=== PATIENT | male | born 1985 | race Caucasian/White ===

== ENCOUNTER 2017-02-25 08:19 | Emergency (ER) | payer SELFPAY ==
[2017-02-25 08:24] VITALS: BP 139/78
[2017-02-25] MEDS ORDERED: Ketorolac 60 MG/2 ML SDV IM ONE (08:42)
--- NOTE | 2017-02-25 11:19 | EDM.PDOC ---
ED HPI LOWER BACK PAIN/INJURY - General Chief Complaint: Back Pain or Injury Stated Complaint: back pain Time Seen by Provider: 02/25/17 08:38 Source of Information: Reports: Patient History Limitations: Reports: No limitations - History of Present Illness INITIAL COMMENTS - FREE TEXT/NARRATIVE: Mitch is a 31 yo male who presents to the ER with complaints of back pain. Patient states that his back has hurt for the past four days and isn't getting any better. States he does have some low back pain on occasion but hasn't had muscle spasms like this. Has tried taking ibuprofen and taking hot baths with no relief. He states the pain is in his right lower back area with no radiation of pain. Denies any numbness, tingling or radicular symptoms. Denies any trauma or known injury. States he woke up with it one morning. He works at the [employer] and is on his feet all day long lifting heavy items on a daily basis. Is currently moving and isn't sure if this initiated it or not. Location: Reports: paraspinal. Denies: radiating pain Quality: Reports: Sharp Severity: moderate Improves with: Reports: Heat therapy, Immobilization Worsens with: Reports: Other (lifting), Movement Associated Symptoms: Reports: Denies symptoms - Related Data Allergies/ADRs: Allergies Allergy/AdvReac Type Severity Reaction Status Date / Time No Known Allergies Allergy Verified 02/25/17 08:24 Home Meds: Home Meds Cyclobenzaprine [Flexeril] 10 mg PO TID PRN #20 tablet 02/25/17 [Rx] Ketorolac [Toradol] 10 mg PO Q6H PRN #20 tablet 02/25/17 [Rx] Past Medical History - Past Health History Medical/Surgical History: Denies Medical/Surgical History Social & Family History - Family History Family Medical History: Noncontributory - Tobacco Use Smoking Status *Q: Current Every Day Smoker Years of Tobacco use: 13 Packs/Tins Daily: 0.5 Second Hand Smoke Exposure: Yes - Caffeine Use Caffeine Use: Reports: Coffee - Alcohol Use Days Per Week of Alcohol Use: 1 Number of Drinks Per Day: 1 Total Drinks Per Week: 1 - Recreational Drug Use Recreational Drug Use: Yes Drug Use in Last 12 Months: No ED ROS GENERAL - Review of Systems Review Of Systems: ROS reveals no pertinent complaints other than HPI. ED EXAM,LOWER BACK PAIN/INJURY - Physical Exam Exam: See Below Exam Limited By: No limitations General Appearance: alert, no apparent distress Back Exam: decreased range of motion, muscle spasm (right l2-l5), paraspinal tenderness. No: vertebral tenderness Extremities: normal inspection, normal range of motion, non-tender, normal capillary refill Neurological: alert, normal mood/affect, normal reflexes, no motor/sensory deficits Psychiatric: normal affect, normal mood Skin Exam: Warm, Dry, Intact, Normal color, No rash Course - Vital Signs Last Recorded V/S: Last Vital Signs Temp 98.0 F 02/25/17 08:20 Pulse 100 02/25/17 08:20 Resp 16 02/25/17 08:20 BP 139/78 02/25/17 08:20 Pulse Ox 100 02/25/17 08:20 - Orders/Labs/Meds Meds: Medications Discontinued Medications Generic Name Dose Route Start Last Admin Trade Name Freq PRN Reason Stop Dose Admin Ketorolac Tromethamine 60 mg 02/25/17 08:42 02/25/17 08:49 Toradol IM 02/25/17 08:43 60 mg ONETIME ONE Administration Orphenadrine Citrate 60 mg 02/25/17 08:42 02/25/17 08:52 Norflex IM 02/25/17 08:43 60 mg NOW STA Administration Departure - Departure Time of Disposition: 09:10 Disposition: Home, Self-Care 01 Condition: good Clinical Impression: Lumbar paraspinal muscle spasm Prescriptions: Cyclobenzaprine [Flexeril] 10 mg PO TID PRN #20 tablet PRN Reason: Spasms Ketorolac [Toradol] 10 mg PO Q6H PRN #20 tablet PRN Reason: Pain Instructions: Muscle Strain, [id number], Back Pain, Adult, [id number] Referrals: PCP,None [Primary Care Provider] - Forms: ED Department Discharge Additional Instructions: 1) Toradol 10mg - 1 tablet every 6 hours as needed for discomfort. 2) Flexeril 10mg - 1 tablet every 8 hours for spasms 3) Apply heat to affected area 4) Rest today 5) Referral to physical therapy given. 6) If symptoms persist or worsen, recommend reevaluation as discussed. - Problem List & Annotations (1) Lumbar paraspinal muscle spasm SNOMED Code(s): 24552104, 38863568 Code(s): M62.830 - MUSCLE SPASM OF BACK Status: Acute - Problem List Review Problem List Initiated/Reviewed/Updated: Yes - Assessment/Plan Plan: Treatment today included muscle relaxer and anti-inflammatory injections with prescriptions to be filled as well. Discussed further evaluation to include x- ray, etc... which we will wait on. Referral given for physical therapy and note for work today.
== END 2017-02-25 09:10 | disposition home or self-care (01) ==
LOC: CC.ED 08:19
DX: M62.830 Muscle spasm of back (principal); F17.210 Nicotine dependence, cigarettes, uncomplicated
CPT/HCPCS: 96372; 99282; J1885; J2360

== ENCOUNTER 2020-04-19 00:55 | Emergency (ER) | payer SELFPAY ==
[2020-04-19 00:57] VITALS: BP 128/83; PULSE 86
[2020-04-19] MEDS ORDERED: Lidocaine 1% 20 ML MDV INJECT ONE (01:17)
[2020-04-19] MEDS ORDERED: Diphtheria,Pertussis(Acell),Tetanus Vaccine 0.5 ML Syringe IM ONE (01:19)
[2020-04-19] MEDS ORDERED: Bacitracin/Neomycin/Polymyxin B Oint 0.9 GM U/D Packet TOP ONE (01:25)
--- NOTE | 2020-04-19 01:45 | EDM.PDOC ---
ED HPI GENERAL MEDICAL PROBLEM - General Chief Complaint: General Stated Complaint: L) pointer finger laceration Time Seen by Provider: 04/19/20 01:18 Source of Information: Reports: Patient History Limitations: Reports: No Limitations - History of Present Illness INITIAL COMMENTS - FREE TEXT/NARRATIVE: Mitch is a 34 yo male who presents to the ED with complaints of a cut to his left index finger. States he was using a knife around 2030 this evening to cut a whole in his belt and slipped cutting across his knuckle. Admits it wouldn't stop bleeding so he came in to the ED. Tdap status not up to date per patient. Left Finger-Index Pain Score (Numeric/FACES): 8 - Related Data Allergies Allergy/AdvReac Type Severity Reaction Status Date / Time No Known Allergies Allergy Verified 04/19/20 00:49 Past Medical History - Past Health History Medical/Surgical History: Denies Medical/Surgical History Social & Family History - Family History Family Medical History: Noncontributory - Tobacco Use Smoking Status *Q: Current Every Day Smoker Years of Tobacco use: 20 Packs/Tins Daily: 1 - Caffeine Use Caffeine Use: Reports: None - Recreational Drug Use Recreational Drug Use: No ED ROS GENERAL - Review of Systems Review Of Systems: Comprehensive ROS is negative, except as noted in HPI. ED EXAM, GENERAL - Physical Exam Exam: See Below Exam Limited By: No Limitations General Appearance: Alert, No Apparent Distress Skin Exam: Wound/Incision (1.5cm fairly linear superficial laceration to left index finger) ED GENERAL MEDICAL PROCEDURES - Laceration/Wound Repair Left Posterior Digit - 2nd (Index) Lac/wound length in cm: 1.5 Appearance: Superficial, Linear Distal NVT: Neuro & Vascular Intact, No Tendon Injury Anesthetic Type: Local Local Anesthesia - Lidocaine (Xylocaine): 1% Plain Local Anesthetic Volume: 2cc Skin Prep: Chlorhexidine (Hibiciens), Providone-Iodine (Betadine) Exploration/Debridement/Repair: Wound Explored, In a Bloodless Field, Explored to Base, No Foreign Material Found Closed with: Sutures Suture Size: 5-0 # of Sutures: 5 Suture Type: Prolene, Interrupted Sterile Dressing Applied: Nurse Tetanus Status Addressed: Yes Complications: No Course - Vital Signs Last Recorded V/S: Last Vital Signs Temp 97.3 F 04/19/20 00:55 Pulse 86 04/19/20 00:55 Resp 16 04/19/20 00:55 BP 128/83 04/19/20 00:55 Pulse Ox 98 04/19/20 00:55 - Orders/Labs/Meds Orders: Active Orders 24 hr Category Date Time Status Vaccines to be Administered [RC] PER UNIT ROUTINE Care 04/19/20 01:20 Active Meds: Medications Discontinued Medications Generic Name Dose Route Start Last Admin Trade Name Priscila PRN Reason Stop Dose Admin Diphtheria/Tetanus/Acell Pertussis 0.5 ml 04/19/20 01:19 04/19/20 01:23 Adacel IM 04/19/20 01:20 0.5 ml .ONCE ONE Administration Lidocaine HCl 20 ml 04/19/20 01:17 04/19/20 01:22 Xylocaine 1% INJECT 04/19/20 01:18 20 ml ONETIME ONE Administration Neomycin/Polymyxin/Bacitracin 1 each 04/19/20 01:25 04/19/20 01:27 Triple Antibiotic Oint TOP 04/19/20 01:26 1 each ONETIME ONE Administration Departure - Departure Time of Disposition: 01:43 Disposition: Home, Self-Care 01 Clinical Impression: Laceration of finger of left hand Qualifiers: Encounter type: initial encounter Finger: index finger Damage to nail status: without damage Foreign body presence: without foreign body Qualified Code(s): S61.211A - Laceration without foreign body of left index finger without damage to nail, initial encounter - Discharge Information Instructions: Laceration Care, Adult, Sutured Wound Care, [id number] Referrals: Félix Dent PA-C [Primary Care Provider] - Additional Instructions: 1) Keep wound clean and dry for 48 hours, no soaking in tub or sink 2) May leave open to air after 48 hours 3) Recommend taking Tylenol or ibuprofen for discomfort 4) Sutures out in 10-14 days. 5) Watch for signs of infection (increased redness, drainage, warmth, etc...). 6) If any concerns or questions call [phone] or return for reevaluation Sepsis Event Note - Evaluation Sepsis Screening Result: No Definite Risk - Focused Exam Vital Signs: Vital Signs Temp Pulse Resp BP Pulse Ox 04/19/20 00:55 97.3 F 86 16 128/83 98 Date Exam was Performed: 04/19/20 Time Exam was Performed: 01:39 - Problem List & Annotations (1) Laceration of finger of left hand SNOMED Code(s): 585545771 Code(s): S61.219A - LACERATION W/O FB OF UNSP FINGER W/O DAMAGE TO NAIL, INIT Status: Acute Current Visit: Yes Qualifiers: Encounter type: initial encounter Finger: index finger Damage to nail status: without damage Foreign body presence: without foreign body Qualified Code(s): S61.211A - Laceration without foreign body of left index finger without damage to nail, initial encounter - My Orders Last 24 Hours: My Active Orders 04/19/20 01:20 Vaccines to be Administered [RC] PER UNIT ROUTINE - Assessment/Plan Last 24 Hours: My Active Orders 04/19/20 01:20 Vaccines to be Administered [RC] PER UNIT ROUTINE Plan: See additional instructions and procedure note. No complications.
== END 2020-04-19 01:52 | disposition home or self-care (01) ==
LOC: CC.ED 00:55
DX: S61.211A Laceration without foreign body of left index finger without damage to nail, initial encounter (principal); F17.210 Nicotine dependence, cigarettes, uncomplicated; Z23 Encounter for immunization; W26.0XXA Contact with knife, initial encounter
CPT/HCPCS: 12001; 90471; 90715; 99282; J2001

== ENCOUNTER 2021-01-04 23:20 | Emergency (ER) | payer SELFPAY ==
--- NOTE | 2021-01-05 00:08 | EDM.PDOC ---
ED HPI GENERAL MEDICAL PROBLEM - General Chief Complaint: Upper Extremity Injury/Pain Stated Complaint: "Broke my hand" Time Seen by Provider: 01/05/21 00:02 Source of Information: Reports: Patient History Limitations: Reports: No Limitations - History of Present Illness INITIAL COMMENTS - FREE TEXT/NARRATIVE: This patient is a 35 year old male that presents to the ER. Patient reports getting mad at home at roommate and guys that came over and punching a wall. Patient reports he has punched a wall several times before after getting angry in the past. Patient denies every breaking his hand before. Onset: Today Onset Date: 01/05/21 Onset Time: 22:30 Location: Reports: Upper Extremity, Right Severity: Mild Improves with: Reports: Movement Worsens with: Reports: Immobilization Associated Symptoms: Reports: No Other Symptoms - Related Data Allergies Allergy/AdvReac Type Severity Reaction Status Date / Time No Known Allergies Allergy Verified 04/19/20 00:49 Home Meds: Home Meds . [No Known Home Meds] 04/19/20 [History] Past Medical History - Past Health History Medical/Surgical History: Denies Medical/Surgical History Social & Family History - Family History Family Medical History: No Pertinent Family History - Caffeine Use Caffeine Use: Reports: None Review of Systems - Review of Systems Review Of Systems: See Below Constitutional: Reports: No Symptoms Eyes: Reports: No Symptoms Ears: Reports: No Symptoms Nose: Reports: No Symptoms Mouth/Throat: Reports: No Symptoms Respiratory: Reports: No Symptoms Cardiovascular: Reports: No Symptoms Musculoskeletal: Reports: Hand Pain (right) Skin: Reports: No Symptoms ED EXAM, GENERAL - Physical Exam Exam: See Below Exam Limited By: No Limitations General Appearance: Alert, WD/WN, No Apparent Distress Respiratory/Chest: No Respiratory Distress, Lungs Clear, Normal Breath Sounds, No Accessory Muscle Use Cardiovascular: Normal Peripheral Pulses, Regular Rate, Rhythm, No Edema, No Gallop, No JVD, No Murmur, No Rub Peripheral Pulses: 2+: Radial (L), Radial (R) Extremities: Normal Capillary Refill, Limited Range of Motion (of t he 4th, 5th digits due to pain, swelling. ), Other (pain, swelling, tenderness right 4th, 5th digits, metacarpals at consistent boxer location.) Neurological: Alert, Oriented, No Motor/Sensory Deficits Skin Exam: Warm, Dry, Normal Color, No Rash, Ecchymosis (right 4th, 5th meta carpal. ), Wound/Incision (several very small superifical abrasions right hand. Tetanus UTD.) ED TRAUMA EXTREMITY PROCEDURES - Splinting Right Upper Extremity Splint Site: Right hand Pre-Procedure NV Status: Normal Post-Procedure NV Status: Normal Splint Material: Fiberglass Splint Design: Boxer Splint Applied & Form Fitted By: Provider Provider Post-Splint Application NV Check: NV Status Normal, Good Position Complications: No Course - Orders/Labs/Meds Orders: Active Orders 24 hr Category Date Time Status Hand Comp Min 3V Rt [CR] Stat Exams 01/04/21 23:36 Taken - Radiology Interpretation Free Text/Narrative:: Right Hand Xray: no fracture seen, no dislocation, no FB. Departure - Departure Time of Disposition: 00:03 Disposition: Home, Self-Care 01 Condition: Good Clinical Impression: Contusion of right hand Qualifiers: Encounter type: initial encounter Qualified Code(s): S60.221A - Contusion of right hand, initial encounter - Discharge Information *PRESCRIPTION DRUG MONITORING PROGRAM REVIEWED*: Not Applicable *COPY OF PRESCRIPTION DRUG MONITORING REPORT IN PATIENT KENDAL: Not Applicable Instructions: Cast or Splint Care, Adult, [id number], Hand Contusion, [id number] Forms: ED Department Discharge Additional Instructions: Followup with primary care provider in 10-14 days for recheck Rest Ice Elevate Splint as needed Tylenol or Motrin for pain Return to the ER for worsening of condition or any emergent concerns - My Orders Last 24 Hours: My Active Orders 01/04/21 23:36 Hand Comp Min 3V Rt [CR] Stat - Assessment/Plan Last 24 Hours: My Active Orders 01/04/21 23:36 Hand Comp Min 3V Rt [CR] Stat Plan: PLEASE SEE RN NOTE FOR PFSH
[2021-01-05 00:37] VITALS: BP 117/75; PULSE 95
== END 2021-01-05 00:10 | disposition home or self-care (01) ==
LOC: CC.ED 23:20
DX: S60.221A Contusion of right hand, initial encounter (principal); W22.8XXA Striking against or struck by other objects, initial encounter
CPT/HCPCS: 29125; 73130-RT; 99283-25

== ENCOUNTER 2021-03-11 19:23 | Emergency (ER) | payer SELFPAY ==
[2021-03-11] MEDS: Aspirin 81 MG Tab.Chew PO ONE (19:32)
--- NOTE | 2021-03-11 19:56 | EDM.PDOC ---
ED HPI GENERAL MEDICAL PROBLEM - General Chief Complaint: General Stated Complaint: CP Time Seen by Provider: 03/11/21 19:56 Source of Information: Reports: Patient History Limitations: Reports: No Limitations - History of Present Illness INITIAL COMMENTS - FREE TEXT/NARRATIVE: Mitch is a 35 yo male who presents to the ED with c/o cold symptoms for the past week. Reports that the last few days, every time he coughs, he now vomits. Does get pain to left anterior chest with coughing. He reports occasionally he will cough up green phlegm. Does report cough is worse at night, as he feels "phlegmy in his throat." He reports he has also noticed some "tarry stools." Reports at work last night he had an episode where he got "shaky" and lightheaded. It did resolve. He reports with all the symptoms he felt he needed to be seen tonight. Does report fever last evening, but unsure what it was. Denies any nausea, vomiting, diarrhea, abdominal pain, urinary symptoms. Denies any exposure to covid. Onset: Gradual Duration: Getting Worse, Intermittent Location: Reports: Chest Associated Symptoms: Reports: Chest Pain, Cough, cough w sputum, Fever/Chills, Loss of Appetite, Nausea/Vomiting, Shortness of Breath. Denies: Confusion, Diaphoresis, Headaches, Malaise, Rash, Seizure, Syncope, Weakness - Related Data Allergies Allergy/AdvReac Type Severity Reaction Status Date / Time No Known Allergies Allergy Verified 03/11/21 19:24 Home Meds: Home Meds Azithromycin 250 mg PO DAILY #6 tablet 03/11/21 [Rx] Pantoprazole Sodium [Protonix] 40 mg PO DAILY #30 tablet. 03/11/21 [Rx] Past Medical History - Past Health History Medical/Surgical History: Denies Medical/Surgical History HEENT History: Reports: None Cardiovascular History: Reports: None Respiratory History: Reports: None Gastrointestinal History: Reports: None Psychiatric History: Reports: Anxiety, Depression Social & Family History - Family History Family Medical History: No Pertinent Family History - Tobacco Use Tobacco Use Status *Q: Current Every Day Tobacco User - Caffeine Use Caffeine Use: Reports: None ED ROS GENERAL - Review of Systems Review Of Systems: Comprehensive ROS is negative, except as noted in HPI. ED EXAM, GENERAL - Physical Exam Exam: See Below Exam Limited By: No Limitations General Appearance: Alert, WD/WN, No Apparent Distress Eye Exam: Bilateral Eye: EOMI, Normal Fundi, Normal Inspection, PERRL Ears: Normal External Exam, Normal Canal, Hearing Grossly Normal, Normal TMs Nose: Nasal Swelling, Nasal Drainage, Other (red mucosa) Throat/Mouth: Other (poor oral hygiene) Head: Atraumatic, Normocephalic Neck: Normal Inspection, Supple, Non-Tender, Full Range of Motion Respiratory/Chest: No Respiratory Distress, Lungs Clear, Normal Breath Sounds, No Accessory Muscle Use, Chest Non-Tender Cardiovascular: Normal Peripheral Pulses, Regular Rate, Rhythm, No Edema, No Gallop, No JVD, No Murmur, No Rub GI/Abdominal: Normal Bowel Sounds, Soft, Non-Tender, No Organomegaly, No Distention, No Abnormal Bruit, No Mass Back Exam: Normal Inspection, Full Range of Motion, NT Extremities: Normal Inspection, Normal Range of Motion, Non-Tender, Normal Capillary Refill, No Pedal Edema Neurological: Alert, Oriented, CN II-XII Intact, Normal Cognition, Normal Gait, Normal Reflexes, No Motor/Sensory Deficits Psychiatric: Normal Affect, Normal Mood Skin Exam: Warm, Dry, Intact, Normal Color, No Rash Lymphatic: No Adenopathy Course - Orders/Labs/Meds Orders: Active Orders 24 hr Category Date Time Status EKG Documentation Completion [RC] STAT Care 03/11/21 19:27 Active Chest 2V [CR] Stat Exams 03/11/21 19:27 Taken Labs: Laboratory Tests 03/11/21 03/11/21 03/11/21 Range/Units 19:29 19:29 19:29 WBC 12.8 H (5.0-10.0) 10^3/uL RBC 5.45 (4.50-6.00) 10^6/uL Hgb 16.4 (14.0-18.0) g/dL Hct 46.7 (40.0-54.0) % MCV 85.7 (82.0-94.0) fL MCH 30.1 (27.0-32.0) pg MCHC 35.1 (33.0-38.0) g/dL RDW Coeff of Pamela 13.0 (11.0-15.0) % Plt Count 239 (150-400) 10^3/uL Neut % (Auto) 68.3 (35-85) % Lymph % (Auto) 22.4 (10-55) % Alfalfa % (Auto) 8.7 (0-16) % Eos % (Auto) 0.5 (0-5) % Baso % (Auto) 0.1 (0-3) % Neut # (Auto) 8.74 H (1.80-7.00) 10^3/uL Lymph # (Auto) 2.87 (1.00-4.80) 10^3/uL Alfalfa # (Auto) 1.12 H (0.00-0.80) 10^3/uL Eos # (Auto) 0.07 (0.00-0.45) 10^3/uL Baso # (Auto) 0.01 10^3/uL PT 11.7 (9.7-12.3) SEC INR 1.08 (0.92-1.18) APTT 25.7 (23.2-32.3) SEC Sodium 142 (136-145) mEq/L Potassium 3.8 (3.5-5.0) mEq/L Chloride 103 (98-106) mEq/L Carbon Dioxide 28 (21-32) mmol/L BUN 7 (7-18) mg/dL Creatinine 0.9 (0.7-1.3) mg/dL Est Cr Clr Drug Dosing TNP Estimated GFR (MDRD) > 60 (>=60) mL/min Glucose 99 (75-99) mg/dL Calcium 9.5 (8.4-10.1) mg/dL Magnesium 2.0 (1.8-2.4) mg/dL Total Bilirubin 0.6 (0.0-1.0) mg/dL AST 16 (15-37) U/L ALT 31 (12-78) U/L Alkaline Phosphatase 83 (46-116) U/L Lactate Dehydrogenase 134 (100-190) U/L Creatine Kinase 136 (35-232) U/L Troponin I < 0.017 (0.00-0.06) ng/mL Total Protein 8.1 (6.4-8.2) g/dL Albumin 4.1 (3.4-5.0) g/dL Lipase 74 (73-393) U/L SARS CoV-2 RNA Rapid PRUDENCIO (NEGATIVE) 03/11/21 Range/Units 20:15 WBC (5.0-10.0) 10^3/uL RBC (4.50-6.00) 10^6/uL Hgb (14.0-18.0) g/dL Hct (40.0-54.0) % MCV (82.0-94.0) fL MCH (27.0-32.0) pg MCHC (33.0-38.0) g/dL RDW Coeff of Pamela (11.0-15.0) % Plt Count (150-400) 10^3/uL Neut % (Auto) (35-85) % Lymph % (Auto) (10-55) % Alfalfa % (Auto) (0-16) % Eos % (Auto) (0-5) % Baso % (Auto) (0-3) % Neut # (Auto) (1.80-7.00) 10^3/uL Lymph # (Auto) (1.00-4.80) 10^3/uL Alfalfa # (Auto) (0.00-0.80) 10^3/uL Eos # (Auto) (0.00-0.45) 10^3/uL Baso # (Auto) 10^3/uL PT (9.7-12.3) SEC INR (0.92-1.18) APTT (23.2-32.3) SEC Sodium (136-145) mEq/L Potassium (3.5-5.0) mEq/L Chloride (98-106) mEq/L Carbon Dioxide (21-32) mmol/L BUN (7-18) mg/dL Creatinine (0.7-1.3) mg/dL Est Cr Clr Drug Dosing Estimated GFR (MDRD) (>=60) mL/min Glucose (75-99) mg/dL Calcium (8.4-10.1) mg/dL Magnesium (1.8-2.4) mg/dL Total Bilirubin (0.0-1.0) mg/dL AST (15-37) U/L ALT (12-78) U/L Alkaline Phosphatase (46-116) U/L Lactate Dehydrogenase (100-190) U/L Creatine Kinase (35-232) U/L Troponin I (0.00-0.06) ng/mL Total Protein (6.4-8.2) g/dL Albumin (3.4-5.0) g/dL Lipase (73-393) U/L SARS CoV-2 RNA Rapid PRUDENCIO Negative (NEGATIVE) Meds: Medications Discontinued Medications Generic Name Dose Route Start Last Admin Trade Name Priscila PRN Reason Stop Dose Admin Aspirin 324 mg 03/11/21 19:32 03/11/21 19:32 Aspirin 81 Mg Tab.Chew PO 03/11/21 19:33 324 mg ONETIME ONE Administration Pantoprazole Sodium 40 mg 03/11/21 20:26 03/11/21 20:39 Pantoprazole 40 Mg Tab.Cr PO 03/11/21 20:27 40 mg STAT STA Administration Departure - Departure Time of Disposition: 20:19 Disposition: Home, Self-Care 01 Condition: Good Clinical Impression: Sinusitis Qualifiers: Sinusitis location: maxillary Chronicity: acute Recurrence: non-recurrent Qualified Code(s): J01.00 - Acute maxillary sinusitis, unspecified GERD (gastroesophageal reflux disease) Qualifiers: Esophagitis presence: with esophagitis Esophagitis bleeding: without hemorrhage Qualified Code(s): K21.00 - Gastro-esophageal reflux disease with esophagitis, without bleeding - Discharge Information *PRESCRIPTION DRUG MONITORING PROGRAM REVIEWED*: Not Applicable *COPY OF PRESCRIPTION DRUG MONITORING REPORT IN PATIENT KENDAL: Not Applicable Prescriptions: Azithromycin 250 mg PO DAILY #6 tablet Pantoprazole Sodium [Protonix] 40 mg PO DAILY #30 tablet. Instructions: Food Choices for Gastroesophageal Reflux Disease, Adult, Sinusitis, Adult, [id number] Referrals: Félix Dent PA-C [Primary Care Provider] - Forms: ED Department Discharge Additional Instructions: - Lab work, EKG and chest xray all look good - Will treat for sinusitis and reflux - Azithromycin daily x 5 days. Can be picked up at pharmacy tomorrow. - Recommend starting Protonix daily for the next 30 days to see if this helps with reflux/chest pain - Follow up in clinic if symptoms worsen or do not improve - Return to ED for Emergent needs - Problem List & Annotations (1) Sinusitis SNOMED Code(s): 65406833 Code(s): J32.9 - CHRONIC SINUSITIS, UNSPECIFIED Status: Acute Current Visit: Yes Qualifiers: Sinusitis location: maxillary Chronicity: acute Recurrence: non-recurrent Qualified Code(s): J01.00 - Acute maxillary sinusitis, unspecified (2) GERD (gastroesophageal reflux disease) SNOMED Code(s): 322887839 Code(s): K21.9 - GASTRO-ESOPHAGEAL REFLUX DISEASE WITHOUT ESOPHAGITIS Status: Acute Current Visit: Yes Qualifiers: Esophagitis presence: with esophagitis Esophagitis bleeding: without hemorrhage Qualified Code(s): K21.00 - Gastro-esophageal reflux disease with esophagitis, without bleeding - My Orders Last 24 Hours: My Active Orders 03/11/21 19:27 EKG Documentation Completion [RC] STAT Chest 2V [CR] Stat - Assessment/Plan Last 24 Hours: My Active Orders 03/11/21 19:27 EKG Documentation Completion [RC] STAT Chest 2V [CR] Stat Assessment:: Sinusitis GERD Plan: As above.
[2021-03-11 20:01] LABS: CHLORIDE,CL 103 mEq/L (98-106); PTT,PARTIAL THROMBOPLSTIN TIME 25.7 SEC (23.2-32.3); SODIUM,NA 142 mEq/L (136-145)
[2021-03-11] MEDS: Pantoprazole 40 MG Tab.CR PO STA (20:39)
[2021-03-11 22:56] VITALS: BP 161/89; PULSE 98
== END 2021-03-11 20:40 | disposition home or self-care (01) ==
LOC: CC.ED 19:23
DX: K21.00 Gastro-esophageal reflux disease with esophagitis, without bleeding (principal); J01.00 Acute maxillary sinusitis, unspecified; Z20.822 Contact with and (suspected) exposure to COVID-19; Z79.899 Other long term (current) drug therapy; Z72.0 Tobacco use
CPT/HCPCS: 36415; 71046; 80053; 82550; 83615; 83690; 83735; 84484; 85025; 85610; 85730; 87635; 93005; A9270; 99285-25; U0002